=== PATIENT | female | born 1960 ===

== ENCOUNTER 2018-04-08 19:37 | Inpatient (IN) | payer MEDICAID, OTHER ==
[~2018-04-08] VITALS: Ht 139.7 cm; Wt 92.3 kg
[2018-04-08] VITALS (9 sets, daily range): BP systolic 123–145; BP diastolic 70–83
[~2018-04-08 19:37] MED LIST: heparin 10,000 units/1 ML INJ ONE; heparin, porcine-25,000 units/250ml premix IV ONE; nitroGLYCERIN 0.4mg SUBLingual tab SL ONE
[2018-04-08] MEDS ORDERED: fentaNYL/PF 50MCG/1 ML 2ML syringe ONE (19:49)
[2018-04-08] MEDS ORDERED: midazolam 2 mg/2 ml injection ONE (19:49)
[2018-04-08] MEDS ORDERED: LIDOcaine 1% (10mg/ml)w/preservative injection 20ml MDV ONE (19:49)
[2018-04-08] MEDS ORDERED: heparin 1,000unit/ml 10ml vial 10 ML ONE (19:50)
[2018-04-08] MEDS ORDERED: heparin 10,000 units/1 ML INJ IV ONE (19:50)
[2018-04-08] MEDS ORDERED: iohexol 350 MG/1 ML 200ml bottle ONE (19:50)
[2018-04-08] MEDS ORDERED: nitroGLYCERIN-Tridil 50MG/D5W 250 ML IV PRN (19:57)
[2018-04-08 20:13] LABS: BASOPHILS % (AUTO) 0.2 % (0-1); EOSINOPHILS # (AUTO) 0.2 X10'3 (0-0.9); EOSINOPHILS % (AUTO) 2.2 % (0-6); HEMATOCRIT 40.1 % (35.0-45.0); HEMOGLOBIN 13.7 g/dl (12.0-16.0); LYMPHOCYTES # (AUTO) 2.1 X10'3 (1.1-4.8); LYMPHOCYTES % (AUTO) 29.9 % (21-51); MEAN CORPUSCULAR HEMOGLOBIN 30.5 PG (27.0-31.0); MEAN CORPUSCULAR HGB CONC 34.1 % (33.0-36.5); MEAN CORPUSCULAR VOLUME 89.3 FL (78-98); MEAN PLATELET VOLUME 6.5 FL (7.4-10.4); MONOCYTES # (AUTO) 0.3 X10'3 (0-0.9); MONOCYTES % (AUTO) 4.5 % (2-12); NEUTROPHILS # (AUTO) 4.5 X10'3 (1.8-7.7); NEUTROPHILS % (AUTO) 63.2 % (42-75); PLATELET COUNT 253 X10'3 (140-440); RED BLOOD COUNT 4.49 X10'6 (4.20-5.60); RED CELL DISTRIBUTION WIDTH 12.9 % (11.5-14.5); WHITE BLOOD COUNT 7.1 X10'3 (4.5-11.0)
[2018-04-08] MEDS ORDERED: atropine 0.1mg/ml 10ml syringe ONE (20:22)
[2018-04-08 20:25] LABS: ALANINE AMINOTRANSFERASE 43 U/L (12-78); ALBUMIN 3.8 G/DL (3.4-5.0); ALBUMIN/GLOBULIN RATIO 1.1 (1.1-1.5); ALKALINE PHOSPHATASE 77 IU/L (46-116); ANION GAP 14 (8-16); ASPARTATE AMINO TRANSFERASE 26 U/L (10-37); BILIRUBIN,TOTAL 0.4 MG/DL (0.1-1.0); BLOOD UREA NITROGEN 13 MG/DL (7-18); BUN/CREATININE RATIO 13.8 (6.6-38.0); CALCIUM 9.5 MG/DL (8.5-10.1); CHLORIDE 100 MMOL/L (99-107); CREATININE 0.94 MG/DL (0.40-0.90); GLUCOSE 259 MG/DL (70-104); POTASSIUM 3.2 MMOL/L (3.5-5.1); SODIUM 138 MMOL/L (135-145); TOTAL CARBON DIOXIDE 24.5 MMOL/L (24-32); TOTAL PROTEIN 7.4 G/DL (6.4-8.2); eGFR 61 ML/MIN
[2018-04-08] MEDS ORDERED: metoprolol tartrate 1mg/ml inj IV ONE (20:25)
[2018-04-08 20:30] LABS: PARTIAL THROMBOPLASTIN TIME 24 SECONDS (22-32); PROTHROMBIN TIME 9.9 SECONDS (9.0-12.0)
[2018-04-08 20:32] LABS: MAGNESIUM 1.7 MG/DL (1.5-2.4)
[2018-04-08] MEDS ORDERED: ticagrelor 90mg tablet ONE (20:32)
[2018-04-08] MEDS ORDERED: aspirin 81mg tab.chew PO ONE (21:25)
[2018-04-08] MEDS ORDERED: furosemide 40mg/4ml inj IV ONE (21:30)
[2018-04-08] MEDS ORDERED: proCHLORperazine 10 MG/2 ml inj IV PRN (21:30)
[2018-04-08] MEDS ORDERED: HYDROcodone/acetaminophen 5mg/325mg tablet PO PRN (21:30)
[2018-04-08] MEDS ORDERED: ondansetron/PF 4mg/2ml inj IV PRN (21:30)
[2018-04-08] MEDS ORDERED: HYDROcodone/acetaminophen 10/325mg tab PO PRN (21:30)
[2018-04-08] MEDS ORDERED: OXAZEpam 15mg capsule PO PRN (21:30)
[2018-04-08] MEDS ORDERED: dextrose ORAL solution 15 GM/59 ML bottle PO PRN ×2 (21:35)
[2018-04-08] MEDS ORDERED: MESSAGE TO PHARMACY PO ONE (21:35)
[2018-04-08] MEDS ORDERED: dextrose 50%-water 50ml dispensing syringe IV PRN ×2 (21:35)
[2018-04-08] MEDS ORDERED: glucagon, human recombinant 1mg kit SUBCUT PRN (21:35)
[2018-04-08] MEDS ORDERED: ipratropium/albuterol 3ml nebule NEB PRN (21:50)
[2018-04-08] MEDS ORDERED: potassium Cl 40MEQ/NS 500ml 500 ML IV PRN ×2 (21:50)
[2018-04-08] MEDS ORDERED: potassium Cl 20 mEq SR tablet PO PRN (21:50)
[2018-04-08] MEDS: potassium Cl 20 mEq SR tablet PO PRN (22:17)
[2018-04-09] VITALS (7 sets, daily range): BP systolic 128–158; BP diastolic 57–90
[2018-04-09] MEDS: insulin Lispro (HumaLOG) vial - multi-dose SQ SCH ×6 (02:21→21:49)
[2018-04-09] MEDS: potassium Cl 20 mEq SR tablet PO PRN (02:53)
[2018-04-09 05:10] LABS: BASOPHILS % (AUTO) 0 % (0-1); EOSINOPHILS # (AUTO) 0.1 X10'3 (0-0.9); EOSINOPHILS % (AUTO) 1.1 % (0-6); HEMATOCRIT 41.6 % (35.0-45.0); HEMOGLOBIN 14.4 g/dl (12.0-16.0); LYMPHOCYTES # (AUTO) 0.5 X10'3 (1.1-4.8); LYMPHOCYTES % (AUTO) 5.5 % (21-51); MEAN CORPUSCULAR HEMOGLOBIN 30.8 PG (27.0-31.0); MEAN CORPUSCULAR HGB CONC 34.5 % (33.0-36.5); MEAN CORPUSCULAR VOLUME 89.2 FL (78-98); MEAN PLATELET VOLUME 6.5 FL (7.4-10.4); MONOCYTES # (AUTO) 0.3 X10'3 (0-0.9); MONOCYTES % (AUTO) 3.3 % (2-12); NEUTROPHILS % (AUTO) 90.1 % (42-75); PLATELET COUNT 270 X10'3 (140-440); RED BLOOD COUNT 4.66 X10'6 (4.20-5.60); RED CELL DISTRIBUTION WIDTH 13.3 % (11.5-14.5); WHITE BLOOD COUNT 8.8 X10'3 (4.5-11.0)
[2018-04-09] MEDS: nitroGLYCERIN 0.4mg SUBLingual tab SL PRN ×2 (05:41→06:48)
[2018-04-09 06:26] LABS: ALANINE AMINOTRANSFERASE 115 U/L (12-78); ALBUMIN 3.8 G/DL (3.4-5.0); ALBUMIN/GLOBULIN RATIO 1.1 (1.1-1.5); ALKALINE PHOSPHATASE 63 IU/L (46-116); ANION GAP 14 (8-16); ASPARTATE AMINO TRANSFERASE 647 U/L (10-37); BILIRUBIN,TOTAL 0.6 MG/DL (0.1-1.0); BLOOD UREA NITROGEN 16 MG/DL (7-18); CALCIUM 9.4 MG/DL (8.5-10.1); CHLORIDE 98 MMOL/L (99-107); CREATININE 1.07 MG/DL (0.40-0.90); GLUCOSE 353 MG/DL (70-104); POTASSIUM 4.2 MMOL/L (3.5-5.1); SODIUM 134 MMOL/L (135-145); TOTAL CARBON DIOXIDE 22.1 MMOL/L (24-32); TOTAL PROTEIN 7.4 G/DL (6.4-8.2); eGFR 52 ML/MIN
[2018-04-09 06:48] LABS: CHOL/HDL RATIO 4.5 (0.00-4.99); CHOLESTEROL 222 MG/DL (0-200); HDL CHOLESTEROL 49 MG/DL (35-60); LDL CHOLESTEROL 138 MG/DL (50-100); MAGNESIUM 1.8 MG/DL (1.5-2.4); TRIGLYCERIDES 232 MG/DL (20-135)
[2018-04-09] MEDS ORDERED: acetaminophen 325mg tablet PO PRN (06:50)
[2018-04-09] MEDS ORDERED: atorvastatin 20mg tablet PO SCH (08:00)
[2018-04-09] MEDS ORDERED: metoprolol tartrate 25mg tablet PO SCH (08:00)
[2018-04-09] MEDS: metoprolol tartrate 25mg tablet PO SCH ×2 (08:36→21:54)
[2018-04-09] MEDS: aspirin 81mg tab.chew PO SCH (08:38)
[2018-04-09] MEDS: ticagrelor 90mg tablet PO SCH ×2 (08:39→21:54)
[2018-04-09] MEDS: atorvastatin 20mg tablet PO SCH (08:39)
[2018-04-09] MEDS ORDERED: METF-950 PO (18:08)
[2018-04-09] MEDS ORDERED: insulin glargine (Lantus) pen - multi-dose SQ SCH (21:00)
[2018-04-09] MEDS ORDERED: lisinopril 5mg tablet PO SCH (21:00)
[2018-04-10 03:00] VITALS: BP 104/68
[2018-04-10 05:46] LABS: BASOPHILS % (AUTO) 0.1 % (0-1); EOSINOPHILS # (AUTO) 0.1 X10'3 (0-0.9); HEMATOCRIT 38.1 % (35.0-45.0); HEMOGLOBIN 13.2 g/dl (12.0-16.0); LYMPHOCYTES # (AUTO) 1.5 X10'3 (1.1-4.8); LYMPHOCYTES % (AUTO) 14.4 % (21-51); MEAN CORPUSCULAR HEMOGLOBIN 30.7 PG (27.0-31.0); MEAN CORPUSCULAR HGB CONC 34.6 % (33.0-36.5); MEAN CORPUSCULAR VOLUME 88.7 FL (78-98); MEAN PLATELET VOLUME 6.7 FL (7.4-10.4); MONOCYTES # (AUTO) 0.7 X10'3 (0-0.9); MONOCYTES % (AUTO) 6.5 % (2-12); NEUTROPHILS # (AUTO) 7.9 X10'3 (1.8-7.7); PLATELET COUNT 279 X10'3 (140-440); RED CELL DISTRIBUTION WIDTH 13.3 % (11.5-14.5); WHITE BLOOD COUNT 10.1 X10'3 (4.5-11.0)
[2018-04-10 05:52] LABS: ALBUMIN 3.4 G/DL (3.4-5.0); ANION GAP 12 (8-16); BLOOD UREA NITROGEN 14 MG/DL (7-18); BUN/CREATININE RATIO 16.5 (6.6-38.0); CALCIUM 9.2 MG/DL (8.5-10.1); CHLORIDE 98 MMOL/L (99-107); CREATININE 0.85 MG/DL (0.40-0.90); GLUCOSE 261 MG/DL (70-104); POTASSIUM 3.6 MMOL/L (3.5-5.1); SODIUM 133 MMOL/L (135-145); TOTAL CARBON DIOXIDE 23.4 MMOL/L (24-32); eGFR 68 ML/MIN
[2018-04-10 06:00] VITALS: BP 126/78
[2018-04-10] MEDS ORDERED: TICA90TA PO (07:16)
[2018-04-10] MEDS ORDERED: NITR0.4T51 SL (07:16)
[2018-04-10] MEDS ORDERED: ATOR20TA66 PO (07:16)
[2018-04-10] MEDS ORDERED: METO50TA17 PO (07:16)
[2018-04-10] MEDS ORDERED: LISI-642 PO (07:16)
[2018-04-10] MEDS ORDERED: ASPI-1265 PO (07:16)
[2018-04-10] MEDS: ticagrelor 90mg tablet PO SCH (08:23)
[2018-04-10] MEDS: insulin Lispro (HumaLOG) vial - multi-dose SQ SCH ×2 (08:59→13:07)
[2018-04-10] MEDS: metoprolol tartrate 25mg tablet PO SCH (09:41)
[2018-04-10] MEDS: atorvastatin 20mg tablet PO SCH (10:23)
[2018-04-10] MEDS: aspirin 81mg tab.chew PO SCH (10:58)
[2018-04-10 11:00] VITALS: BP 133/66
== END 2018-04-10 14:30 | disposition home or self-care (01) | DRG 174 ==
LOC: EDBD 19:41 → ER 19:41 → PCU 3S 21:31
PROVIDERS: ADMIT Internal Medicine Interventional Cardiology; ATTEND Internal Medicine Interventional Cardiology
PROC: 4A023N7 Measurement of Cardiac Sampling and Pressure, Left Heart, Percutaneous Approach (ICD-10-PCS; principal; 2018-04-08)
PROC: 027034Z Dilation of Coronary Artery, One Artery with Drug-eluting Intraluminal Device, Percutaneous Approach (ICD-10-PCS; 2018-04-08)
PROC: B2111ZZ Fluoroscopy of Multiple Coronary Arteries using Low Osmolar Contrast (ICD-10-PCS; 2018-04-08)
PROC: B2151ZZ Fluoroscopy of Left Heart using Low Osmolar Contrast (ICD-10-PCS; 2018-04-08)
DX: I21.02 ST elevation (STEMI) myocardial infarction involving left anterior descending coronary artery (principal); I50.31 Acute diastolic (congestive) heart failure; E11.65 Type 2 diabetes mellitus with hyperglycemia; E66.01 Morbid (severe) obesity due to excess calories; I11.0 Hypertensive heart disease with heart failure; F32.9 Major depressive disorder, single episode, unspecified; E78.5 Hyperlipidemia, unspecified; Z68.42 Body mass index [BMI] 45.0-49.9, adult; Z90.49 Acquired absence of other specified parts of digestive tract; Z79.899 Other long term (current) drug therapy; Z79.82 Long term (current) use of aspirin; Z79.84 Long term (current) use of oral hypoglycemic drugs; Z82.49 Family history of ischemic heart disease and other diseases of the circulatory system
CPT/HCPCS: 36415; 71045; 80048; 80053; 80061; 82948; 83036; 83735; 83880; 84484; 85025; 85610; 85730; 87070; 93005; 93306; 93458; 94760; 96374; 99285; A4620; A6257; C1725; C1760; C1769; C1874; C9606; G0378; J0461; J1644; J1815; J1940; J2001; J2250; J3010; J3490; Q9967